=== PATIENT | female | born 1980 | race African-American/Black ===

== ENCOUNTER 2017-11-19 20:12 | Inpatient (IN) | payer SELFPAY ==
[2017-11-19 20:35] LABS: URINE HCG POC HCG NEGATIVE (Negative)
[2017-11-19 20:36] LABS: ADD MAN DIFF? NO
[2017-11-19 20:39] LABS: BASO # 0.1 x10^3/uL (0.0-0.2); BASO % 1 % (0-3); EOS % 0 % (0-3); HEMATOCRIT 35.5 % (36.0-47.0); LYMPH # 1.6 x10^3/uL (1.0-4.8); LYMPH % 21 % (24-48); MEAN CORPUSCULAR HEMOGLOBIN 30 pg (25-35); MEAN CORPUSCULAR HGB CONC 34 g/dL (31-37); MEAN CORPUSCULAR VOLUME 89 fL (79-100); MONO # 0.7 x10^3/uL (0.0-1.1); MONO % 9 % (0-9); NEUT # 5.3 x10^3uL (1.8-7.7); NEUT % 69 % (31-73); PLATELET COUNT 174 x10^3/uL (140-400); RED BLOOD COUNT 3.99 x10^6/uL (3.50-5.40); RED CELL DISTRIBUTION WIDTH 15.2 % (11.5-14.5); WHITE BLOOD COUNT 7.7 x10^3/uL (4.0-11.0)
[2017-11-19 21:03] LABS: ANION GAP 6 (6-14); BLOOD UREA NITROGEN 7 mg/dL (7-20); BUN/CREATININE RATIO 10 (6-20); CALCIUM 9.5 mg/dL (8.5-10.1); CARBON DIOXIDE 32 mmol/L (21-32); CHLORIDE 98 mmol/L (98-107); CREATININE 0.7 mg/dL (0.6-1.0); GFR 94.7; GLUCOSE 112 mg/dL (70-99); POTASSIUM 3.1 mmol/L (3.5-5.1); SODIUM 136 mmol/L (136-145)
[2017-11-19 21:04] LABS: BILIRUBIN,URINE NEGATIVE (NEG); CLARITY,URINE CLEAR; COLOR,URINE YELLOW; GLUCOSE,URINE NEGATIVE (NEG); NITRITE,URINE NEGATIVE (NEG); PH,URINE 8.5; PROTEIN,URINE 30 mg/dL (NEG-TRACE)
[2017-11-19 21:09] LABS: ALBUMIN 3.5 g/dL (3.4-5.0); ALBUMIN/GLOBULIN RATIO 0.6 (1.0-1.7); ALK PHOS 92 U/L (46-116); ALT (SGPT) 23 U/L (14-59); AST (SGOT) 43 U/L (15-37); CREATINE KINASE 200 U/L (26-192); TOTAL BILIRUBIN 0.9 mg/dL (0.2-1.0)
[2017-11-19 21:11] LABS: TROPONINI < 0.017 ng/mL (0.000-0.055)
[2017-11-19 21:11] LABS: BACTERIA,URINE MOD /HPF (0-FEW); RBC,URINE OCC /HPF (0-2); SQUAMOUS EPITHELIAL CELL,UR MANY /LPF
[2017-11-19 21:16] LABS: THYROID STIM HORMONE (TSH) 1.276 uIU/mL (0.358-3.74)
[2017-11-19] MEDS: hydrALAZINE 20 MG/ML VIAL. IVP ×2 (21:17→22:57)
[2017-11-19 21:29] LABS: CREATINE KINASE 194 U/L (26-192)
[2017-11-19 21:30] LABS: CKMB INDEX 0.3 % (0-4); CKMB MASS < 0.5 ng/mL (0.0-3.6)
[2017-11-19] MEDS: ASPIRIN 325 MG TABLET PO (22:10)
[2017-11-19] MEDS: POTASSIUM CHLORIDE 20 MEQ TABLET.ER. PO (22:11)
[2017-11-19] MEDS: LABETALOL 20 MG/4 ML DISP.SYRIN. IVP (22:11)
[2017-11-19] MEDS: IV NORMAL SALINE 1000ML BAG 1,000 ML IV (22:12)
[2017-11-19] MEDS ORDERED: ONDANSETRON PF 4 MG/2 ML VIAL. IV (22:15)
[2017-11-19] MEDS ORDERED: MORPHINE SULFATE 4 MG/ML DISP.SYRIN. IV (22:15)
[2017-11-19] MEDS ORDERED: ACETAMINOPHEN 325 MG TABLET. PO (22:15)
[2017-11-19] MEDS: POTASSIUM CHLORIDE 20 MEQ/15 ML ORAL LIQUID. PEG (22:38)
[2017-11-19 22:46] LABS: MAGNESIUM 1.3 mg/dL (1.8-2.4)
[2017-11-20] MEDS: MAGNESIUM SULFATE 2GM 50 ML IV (00:41)
[2017-11-20 05:24] LABS: ADD MAN DIFF? NO
[2017-11-20 05:34] LABS: BASO % 1 % (0-3); EOS # 0.1 x10^3/uL (0.0-0.7); EOS % 1 % (0-3); HEMATOCRIT 34.1 % (36.0-47.0); HEMOGLOBIN 11.1 g/dL (12.0-15.5); LYMPH % 37 % (24-48); MEAN CORPUSCULAR HEMOGLOBIN 30 pg (25-35); MEAN CORPUSCULAR HGB CONC 33 g/dL (31-37); MEAN CORPUSCULAR VOLUME 91 fL (79-100); MONO # 0.6 x10^3/uL (0.0-1.1); MONO % 11 % (0-9); NEUT # 2.7 x10^3uL (1.8-7.7); NEUT % 50 % (31-73); PLATELET COUNT 149 x10^3/uL (140-400); RED BLOOD COUNT 3.75 x10^6/uL (3.50-5.40); RED CELL DISTRIBUTION WIDTH 15.5 % (11.5-14.5); WHITE BLOOD COUNT 5.4 x10^3/uL (4.0-11.0)
[2017-11-20 05:56] LABS: MAGNESIUM 2.6 mg/dL (1.8-2.4)
[2017-11-20 06:00] LABS: ALBUMIN 2.9 g/dL (3.4-5.0); ALBUMIN/GLOBULIN RATIO 0.7 (1.0-1.7); ALK PHOS 77 U/L (46-116); ALT (SGPT) 18 U/L (14-59); ANION GAP 5 (6-14); AST (SGOT) 26 U/L (15-37); BLOOD UREA NITROGEN 7 mg/dL (7-20); BUN/CREATININE RATIO 10 (6-20); CALCIUM 8.7 mg/dL (8.5-10.1); CARBON DIOXIDE 30 mmol/L (21-32); CHLORIDE 103 mmol/L (98-107); CREATININE 0.7 mg/dL (0.6-1.0); GFR 114.6; GLUCOSE 87 mg/dL (70-99); POTASSIUM 3.3 mmol/L (3.5-5.1); SODIUM 138 mmol/L (136-145); TOTAL BILIRUBIN 0.5 mg/dL (0.2-1.0); TOTAL PROTEIN 7.2 g/dL (6.4-8.2)
[2017-11-20 06:14] LABS: TROPONINI < 0.017 ng/mL (0.000-0.055)
[2017-11-20 07:02] LABS: PLT ESTIMATE ADEQUATE (ADEQUATE)
[2017-11-20] MEDS: POTASSIUM CHLORIDE 20 MEQ TABLET.ER. PO (10:30)
[2017-11-20] MEDS ORDERED: MORPHINE SULFATE 4 MG/ML DISP.SYRIN. IV (11:30)
[2017-11-20] MEDS ORDERED: DOCUSATE SODIUM 100 MG CAPSULE. PO (11:30)
[2017-11-20] MEDS ORDERED: hydrALAZINE 20 MG/ML VIAL. IVP (11:30)
[2017-11-20] MEDS ORDERED: traMADol 50 MG TABLET PO (11:30)
[2017-11-20] MEDS ORDERED: ACETAMINOPHEN 325 MG TABLET. PO (11:30)
[2017-11-20] MEDS ORDERED: ONDANSETRON PF 4 MG/2 ML VIAL. IV (11:30)
[2017-11-20] MEDS: POTASSIUM CHLORIDE 20 MEQ/15 ML ORAL LIQUID. PEG (12:18)
[2017-11-20 13:26] LABS: BARBITURATES NEG (NEG); BENZODIAZEPINES NEG (NEG); CANNABINOIDS POS (NEG); COCAINE NEG (NEG); METHADONE NEG (NEG); OPIATES NEG (NEG); PHENCYCLIDINE NEG (NEG)
[2017-11-20 13:33] LABS: AMPHETAMINE/METHAMPHETAMINE NEG (NEG); ETHANOL, URINE NEG (NEG)
[2017-11-20] MEDS: ENOXAPARIN 40 MG/0.4 ML SYRINGE. SQ (14:33)
[2017-11-21 04:47] LABS: ADD MAN DIFF? NO
[2017-11-21 04:54] LABS: BASO % 1 % (0-3); EOS # 0.1 x10^3/uL (0.0-0.7); EOS % 2 % (0-3); HEMATOCRIT 32.8 % (36.0-47.0); HEMOGLOBIN 10.8 g/dL (12.0-15.5); LYMPH # 2.8 x10^3/uL (1.0-4.8); LYMPH % 58 % (24-48); MEAN CORPUSCULAR HEMOGLOBIN 30 pg (25-35); MEAN CORPUSCULAR HGB CONC 33 g/dL (31-37); MEAN CORPUSCULAR VOLUME 91 fL (79-100); MONO # 0.7 x10^3/uL (0.0-1.1); MONO % 15 % (0-9); NEUT # 1.2 x10^3uL (1.8-7.7); NEUT % 24 % (31-73); PLATELET COUNT 144 x10^3/uL (140-400); RED BLOOD COUNT 3.61 x10^6/uL (3.50-5.40); RED CELL DISTRIBUTION WIDTH 15.7 % (11.5-14.5); WHITE BLOOD COUNT 4.8 x10^3/uL (4.0-11.0)
[2017-11-21 05:12] LABS: ANION GAP 8 (6-14); BLOOD UREA NITROGEN 6 mg/dL (7-20); CALCIUM 8.6 mg/dL (8.5-10.1); CARBON DIOXIDE 28 mmol/L (21-32); CHLORIDE 104 mmol/L (98-107); CREATININE 0.7 mg/dL (0.6-1.0); GFR 114.6; GLUCOSE 87 mg/dL (70-99); POTASSIUM 3.9 mmol/L (3.5-5.1); SODIUM 140 mmol/L (136-145)
[2017-11-21] MEDS: amLODIPine BESYLATE 10 MG TABLET PO (11:04)
[2017-11-21] MEDS: LISINOPRIL 20 MG TABLET PO ×2 (11:04→13:29)
== END 2017-11-21 13:50 | disposition home or self-care (01) | DRG 880 ==
LOC: ER 20:12 → 6 SOUTH 21:42
DX: F41.9 Anxiety disorder, unspecified (principal); E44.1 Mild protein-calorie malnutrition; Z68.1 Body mass index [BMI] 19.9 or less, adult; E83.42 Hypomagnesemia; E86.0 Dehydration; E87.6 Hypokalemia; F17.210 Nicotine dependence, cigarettes, uncomplicated; I10 Essential (primary) hypertension; I16.0 Hypertensive urgency; R00.2 Palpitations; Z82.49 Family history of ischemic heart disease and other diseases of the circulatory system
CPT/HCPCS: 36415; 71045; 80048; 80053; 80307; 81001; 81025; 82550; 82553; 83735; 84443; 84484; 85025; 93005; 93306; 96374; 96375; 96376; 99285; 99285-25; J0360; J1650; J2060; J3475; J3490; J7030

== ENCOUNTER 2018-03-23 02:00 | Emergency (ER) | payer SELFPAY ==
[~2018-03-23] VITALS: Ht 167.6 cm; Wt 47.6 kg
[2018-03-23 02:00] VITALS: BP 149/105
[~2018-03-23 02:00] MED LIST: AMLO10TA6 PO; LISI-130 PO
--- NOTE | 2018-03-23 02:35 | PHYS DOC ---
Past Medical History Past Medical History: Hypertension Past Surgical History: No Surgical History Alcohol Use: Occasionally Drug Use: None Adult General Chief Complaint Chief Complaint: TREMORS HPI HPI Patient is a 37-year-old -[place] female who presents to the emergency department via EMS. She states her aunt called the ambulance because she was having involuntary tremors of her upper extremities. She states she has had this in the past but she states is been hospitalized several times in the past few months at other facilities, usually for hypertension. She states she did have "a small drink" tonight, she does drink alcohol, although she states she does not take everyday. She denies any focal pain. She denies any headache or recent head injuries. There are no alleviating, or exacerbating factors to her symptoms. Review of Systems Review of Systems Constitutional: Denies fever or chills [] Eyes: Denies change in visual acuity, redness, or eye pain [] HENT: Denies nasal congestion or sore throat [] Respiratory: Denies cough or shortness of breath [] Cardiovascular: The patient denies any shortness of breath, chest pain, palpitations, or orthopnea [] GI: Denies abdominal pain, nausea, vomiting, bloody stools or diarrhea [] : Denies dysuria or hematuria [] Musculoskeletal: Denies back pain or joint pain [] Integument: Denies rash or skin lesions [] Neurologic: Denies headache, focal weakness or sensory changes [] Endocrine: Denies polyuria or polydipsia [] All other systems were reviewed and found to be within normal limits, except as documented in this note. Current Medications Current Medications Current Medications Medications (Trade) Dose Ordered Sig/Purnima Start Time Stop Time Status Last Admin Dose Admin Lorazepam (Ativan) 1 mg 1X ONCE 03/23/18 02:30 03/23/18 02:31 UNV Multivitamins 10 ml/Thiamine HCl 100 mg/Folic Acid 1 mg/Sodium Chloride 1,011.2 ml @ 1,000.088 mls/hr 1X ONCE 03/23/18 02:30 03/23/18 03:30 UNV Allergies Allergies Allergies Coded Allergies Type Severity Reaction Last Updated Verified No Known Drug Allergies 11/19/17 No Physical Exam Physical Exam PHYSICAL EXAM: CONSTITUTIONAL: Well developed, well nourished HEAD: normocephalic, atraumatic EENT: PERRL, EOMI. Conjunctivae are injected bilaterally, there is lateral nystagmus on lateral gaze bilaterally., sclerae non-icteric; moist mucous membranes. NECK: Supple, non-tender; no meningismus. LUNGS: Lungs CTA, breathing even and unlabored. Normal air movement. HEART: Regular rate and rhythm, no murmur CHEST: No deformity; non-tender ABDOMEN: The abdomen is soft, and non-tender, no masses or bruits. EXTREM: Normal ROM; no deformity, no calf tenderness. Normal pulses palpable in all extremities. There is no pedal edema. SKIN: No rash; no diaphoresis NEURO: Alert; normal speech and cognition; CN's grossly intact; strength grossly intact without focal deficit. There is an occasional tremor/shaking which is coarse, and could be voluntary, and the upper extremities. BACK: No CVA TTP. Current Patient Data Vital Signs Vital Signs Date Time Temp Pulse Resp B/P (MAP) Pulse Ox O2 Delivery O2 Flow Rate FiO2 03/23/18 02:00 98.5 89 16 149/105 (120) 100 Room Air 98.5 EKG EKG [] Radiology/Procedures Radiology/Procedures [] Course & Med Decision Making Course & Med Decision Making 3:05 AM: The patient apparently decided to leave prior to initiation of evaluation. I did not have the opportunity to discuss the risks and benefits of such with the patient. Dragon Disclaimer Dragon Disclaimer This electronic medical record was generated, in whole or in part, using a voice recognition dictation system. Departure Departure Impression: Primary Impression: Tremor Additional Impression: Alcohol intoxication Disposition: 07 AGAINST MEDICAL ADVICE Condition: STABLE Referrals: NON,STAFF (PCP) Problem Qualifiers NICOLAS INMAN MD Mar 23, 2018 02:35
[2018-03-23] MEDS ORDERED: MULTIVIT INFUSN,ADULT 4,VIT K 10 ML, THIAMINE 100 MG, FOLIC ACID 1 MG in IV NORMAL SALI... IV ONE (02:45)
== END 2018-03-23 03:00 | disposition left against medical advice (07) ==
LOC: ER 02:00
DX: R25.1 Tremor, unspecified (principal); F10.129 Alcohol abuse with intoxication, unspecified; I10 Essential (primary) hypertension
CPT/HCPCS: 99281